=== PATIENT | male | born 1975 | race Caucasian/White ===

== ENCOUNTER 2017-09-28 18:13 | Emergency (ER) | payer BC ==
[2017-09-28 18:18] VITALS: RESP 18
[2017-09-28] MEDS ORDERED: LIDOCAINE-PRILOCAINE 2.5-2.5% CREAM 5 GM TUBE TOPICAL STA (18:49)
[2017-09-28] MEDS ORDERED: IBUPROFEN 600 MG TAB PO STA (18:51)
--- NOTE | 2017-09-28 18:57 | ED ---
General Adult HPI - General Chief complaint: Skin/Abscess/Foreign Body Stated complaint: Splinter in finger Time Seen by Provider: 09/28/17 18:42 Source: patient, RN notes reviewed Mode of arrival: ambulatory Limitations: no limitations - History of Present Illness Initial comments: This is a 42-year-old male with no past medical history who presents today for chief complaint of I have a splinter in my finger. Patient states that he was working with wood earlier today when he felt a sliver in his right ring finger. Patient attempted to remove the splinter himself with tweezers, however it kept breaking off and he was unable to remove it. He went to [facility] for removal, however they sent him to emergency department. Patient denies any numbness, tingling, paresthesia, loss of sensation, decreased range of motion of the finger. Patient denies medication . Patient denies any recent fever, chills, shortness of breath, chest pain, back pain, abdominal pain, nausea or vomiting, numbness or tingling, dysuria or hematuria, constipation or diarrhea, headaches or visual changes, or any other complaints. Patient states tetanus is up-to-date he received it 2 years ago. - Related Data Previous Rx's Medication Instructions Recorded Cephalexin [Keflex] 500 mg PO Q8HR 5 Days #15 cap 09/28/17 Allergies Allergy/AdvReac Type Severity Reaction Status Date / Time No Known Allergies Allergy Verified 09/28/17 18:18 Review of Systems ROS Statement: Those systems with pertinent positive or pertinent negative responses have been documented in the HPI. ROS Other: All systems not noted in ROS Statement are negative. Constitutional: Denies: fever Cardiovascular: Denies: chest pain, palpitations Endocrine: Denies: fatigue Gastrointestinal: Denies: abdominal pain, nausea, vomiting, diarrhea, constipation Genitourinary: Denies: urgency, dysuria Musculoskeletal: Denies: back pain Skin: Reports: as per HPI Past Medical History Past Medical History: No Reported History History of Any Multi-Drug Resistant Organisms: None Reported Past Surgical History: No Surgical Hx Reported Past Psychological History: Bipolar Smoking Status: Former smoker Past Alcohol Use History: Occasional Past Drug Use History: None Reported General Exam - General Exam Comments Initial Comments: General: The patient is awake and alert, in no distress, and does not appear acutely ill. Eye: Pupils are equal, round and reactive to light, extra-ocular movements are intact. No nystagmus. There is normal conjunctiva bilaterally. No signs of icterus. Ears, nose, mouth and throat: There are moist mucous membranes and no oral lesions. Neck: The neck is supple, there is no tenderness or JVD. Cardiovascular: There is a regular rate and rhythm. No murmur, rub or gallop is appreciated. Respiratory: Lungs are clear to auscultation, respirations are non-labored, breath sounds are equal. No wheezes, stridor, rales, or rhonchi. Musculoskeletal: Normal ROM, no tenderness. Strength 5/5. Sensation intact. Pulses equal bilaterally 2+. Neurological: A&O x 3. CN II-XII intact, There are no obvious motor or sensory deficits. Coordination appears grossly intact. Speech is normal. Skin: Skin is warm and dry and no rashes or lesions are noted. There is a 3/4 cm sliver to the medial side of the right fourth finger parallel to the nail bed. No evidence of active bleeding, drainage or erythema. Psychiatric: Cooperative, appropriate mood & affect, normal judgment. Limitations: no limitations Course Vital Signs 09/28/17 09/28/17 18:13 20:22 Temperature 97.7 F 96.8 F L Pulse Rate 48 L 50 L Respiratory 18 18 Rate Blood Pressure 123/70 134/82 O2 Sat by Pulse 99 100 Oximetry Procedures - Procedures Initial comment: Area was cleaned cleansed with sterile saline, wound explored. Topical EMLA was appiled for 20 minutes. Cleansed with iodine, wound was expanded with 15 blade scapel, sliver was deeper than expectd pt recieved digital nerve block, further exploration, sliver removed with 18 gauge needle and tweezers. Medical Decision Making - Medical Decision Making Area was cleaned cleansed with sterile saline, wound explored- no exposure of underlying structure. Topical EMLA was appiled for 20 minutes. Cleansed with iodine, wound was expanded with 15 blade scapel, sliver was deeper than expectd pt recieved digital nerve block, further exploration, sliver removed with 18 gauge needle and tweezers. Iatrogenic laceration not deep enough to warrant sutures. Wound was cleansed with water, bacitracin and sterile bandage applied. Pt discharged with rx for 500mg keflex TID x5 days for infection ppx. Pt discharged in stable condition. Pt was seen in person and examined by Dr. Willoughby who agrees with plan of care. Disposition Clinical Impression: Splinter of finger without major open wound or infection Disposition: HOME SELF-CARE Condition: Good Additional Instructions: Please use medication as discussed. Please follow-up with family doctor in the next 2 days of symptoms have not improved. Please return to emergency room if the symptoms increase or worsen or for any other concerns. Prescriptions: Cephalexin [Keflex] 500 mg PO Q8HR 5 Days #15 cap Is patient prescribed a controlled substance at d/c from ED?: No Referrals: None,Stated [Primary Care Provider] - 1-2 days Time of Disposition: 20:32
[2017-09-28] MEDS ORDERED: LIDOCAINE 1% INJ 10MG/ML (20 ML MDV) SQ ONE (19:57)
[2017-09-28 20:24] VITALS: BP 134/82; PULSE 50; TEMP 96.8
== END 2017-09-28 21:00 | disposition home or self-care (01) ==
LOC: EC 18:13
DX: S60.454A Superficial foreign body of right ring finger, initial encounter (principal); Z87.891 Personal history of nicotine dependence; W45.8XXA Other foreign body or object entering through skin, initial encounter
CPT/HCPCS: 99282; 10120; J2001

== ENCOUNTER 2020-03-14 21:34 | Emergency (ER) | payer BC ==
[2020-03-14 21:48] VITALS: BP 145/78; PULSE 66; RESP 18; TEMP 98.7
--- NOTE | 2020-03-14 22:49 | ED ---
General Adult HPI - General Chief complaint: Overdose Stated complaint: Poss ingestion of something poisonous Time Seen by Provider: 03/14/20 21:52 Source: patient Mode of arrival: ambulatory Limitations: no limitations - History of Present Illness Initial comments: 45-year-old male patient presents to the emergency department today for evaluation after ingesting a teammate from the needles of a yew tree. Patient states he thought he was making a tea from a fir tree and realized the needles were different. States that the yew is poisonous so he presented here for evaluation. Patient states he took a sip of the tea around 20:00. States he did not drink any more. He did call poison control and was advised to come in for an EKG. Patient currently denies any symptoms. States he feels well. Patient denies any recent rash, fever, chills, cough, shortness of breath, chest pain, abdominal pain, nausea, vomiting, diarrhea, constipation, back pain, numbness, tingling, dizziness, weakness, hematuria, dysuria, urinary urgency, urinary frequency, headache, visual changes, or any other complaints. - Related Data Previous Rx's Medication Instructions Recorded Cephalexin [Keflex] 500 mg PO Q8HR 5 Days #15 cap 09/28/17 Allergies Allergy/AdvReac Type Severity Reaction Status Date / Time No Known Allergies Allergy Verified 09/28/17 18:18 Review of Systems ROS Statement: Those systems with pertinent positive or pertinent negative responses have been documented in the HPI. ROS Other: All systems not noted in ROS Statement are negative. Past Medical History Past Medical History: No Reported History Additional Past Medical History / Comment(s): Hernia History of Any Multi-Drug Resistant Organisms: None Reported Past Surgical History: No Surgical Hx Reported Past Psychological History: Bipolar Smoking Status: Never smoker Past Alcohol Use History: None Reported Past Drug Use History: None Reported General Exam Limitations: no limitations General appearance: alert, in no apparent distress, other (Physical well- developed, well-nourished adult male patient in no acute distress. Vital signs upon presentation Are 98.7F, pulse 66, respirations 18, blood pressure 145/78, pulse ox 97% on room air.) Eye exam: Present: normal appearance, PERRL, EOMI. Absent: scleral icterus, conjunctival injection, periorbital swelling ENT exam: Present: normal exam, normal oropharynx, mucous membranes moist Respiratory exam: Present: normal lung sounds bilaterally. Absent: respiratory distress, wheezes, rales, rhonchi, stridor Cardiovascular Exam: Present: regular rate, normal rhythm, normal heart sounds. Absent: systolic murmur, diastolic murmur, rubs, gallop, clicks GI/Abdominal exam: Present: soft, normal bowel sounds. Absent: distended, tenderness, guarding, rebound, rigid Neurological exam: Present: alert, oriented X3, CN II-XII intact Psychiatric exam: Present: normal affect, normal mood Skin exam: Present: warm, dry, intact, normal color. Absent: rash Course Vital Signs 03/14/20 21:42 Temperature 98.7 F Pulse Rate 66 Respiratory 18 Rate Blood Pressure 145/78 O2 Sat by Pulse 97 Oximetry Medical Decision Making - Medical Decision Making 45-year-old male patient presented to the emergency department today for evaluation after taking a sip of a containing yew needles. This is a toxic tree to humans. Patient is not currently having any symptoms. Physical examination is unremarkable. I did speak to poison control who recommended EKG and monitoring. Patient was quite concerned about his insurance deductible and refuses to have the EKG performed. We gave him alternative for being monitored for one hour having repeat vital signs performed. Patient waited approximately 20 minutes and then left AGAINST MEDICAL ADVICE. He did sign a form and understood risks of leaving. Return parameters were discussed in detail. He verbalizes understanding and agrees with this plan. Disposition Clinical Impression: Chemical poisoning due to ingestion of food Disposition: Left Against Medical Advice Condition: Undetermined Referrals: None,Stated [Primary Care Provider] - 1-2 days
== END 2020-03-14 22:56 | disposition left against medical advice (07) ==
LOC: EC 21:34
DX: T65.891A Toxic effect of other specified substances, accidental (unintentional), initial encounter (principal); Z53.20 Procedure and treatment not carried out because of patient's decision for unspecified reasons
CPT/HCPCS: 99283